=== PATIENT | female | born 1970 | race Caucasian/White ===

== ENCOUNTER 2018-07-28 07:08 | Day surgery (SDC) | payer BC, OTHER ==
[2018-07-22 12:16] LABS: Absolute Lymphocytes (CBC) 2.3 K/uL (0.7-4.9); Absolute Monocytes 0.6 K/uL (0.1-1.3); Basophils % 1.1 % (0-1.3); Eosinophils % 8.2 % (0-4.4); Hematocrit 43.7 % (36.0-45.0); Lymphocytes % 35.1 % (15.3-44.8); MPV 9.3 fL (7.6-11.3); Monocytes % 9.3 % (3.3-12.3)
[2018-07-22 12:32] LABS: Urine Appearance CLEAR; Urine Bilirubin NEGATIVE (NEG); Urine Blood NEGATIVE (NEG); Urine Color YELLOW; Urine Glucose NEGATIVE (NEG); Urine Protein NEGATIVE (NEG); Urine Specific Gravity 1.015 (1.005-1.030); Urine Urobilinogen 0.2 mg/dL (0.2-1.0)
[2018-07-22 12:36] LABS: Urine Microscopic Reflex NO UMIC
[2018-07-28] MEDS ORDERED: VASOPRESSIN 20 UNIT/ML VIAL ONE (07:34)
[2018-07-28] MEDS ORDERED: CEFAZOLIN/SWI 1gm 1 GM/10 ML SYR ONE (07:34)
[2018-07-28] MEDS ORDERED: NA CHLORIDE 0.9% 50 ML ONE (07:34)
[2018-07-28] MEDS ORDERED: SCOPOLAMINE HYDROBROMIDE PATCH TD ONE (07:38)
[2018-07-28] MEDS ORDERED: CEFAZOLIN/SWI 2gm 2 GM/20 ML SYR ONE (07:38)
[2018-07-28] MEDS ORDERED: Ringers Lactate 1,000 ML IV ONE ×2 (07:38→11:04)
[2018-07-28] MEDS ORDERED: ROCURONIUM 50 MG/5 ML VIAL IV ONE (07:50)
[2018-07-28] MEDS ORDERED: PROPOFOL 200 MG/20 ML VIAL IV ONE (07:50)
[2018-07-28] MEDS ORDERED: DEXAMETHASONE 10 MG/ML VIAL ONE (07:50)
[2018-07-28] MEDS ORDERED: FENTANYL CITR 250 MCG/5 ML ONE (07:50)
[2018-07-28] MEDS ORDERED: MIDAZOLAM HCL 2 MG/2 ML INJ ONE (07:50)
[2018-07-28] MEDS ORDERED: LIDOCAINE 2% MPF 5 ML VIAL ONE (07:50)
[2018-07-28] MEDS ORDERED: ONDANSETRON 4 MG/2 ML VIAL ONE (07:51)
[2018-07-28] MEDS ORDERED: NA CHLORIDE 0.9% 1,000 ML ONE (08:52)
[2018-07-28] MEDS ORDERED: FENTANYL CITR 100 MCG/2 ML ONE (11:35)
[2018-07-28] MEDS: HYDROMORPHONE HCL 1 MG/ML INJ ONE ×4 (12:43→14:10)
[2018-07-28] MEDS ORDERED: PROMETHAZINE 25 MG/ML VIAL IV PRN (12:54)
[2018-07-28] MEDS ORDERED: PROMETHAZINE 25 MG TABLET PO PRN (12:55)
[2018-07-28] MEDS ORDERED: MEPERIDINE HCL 50 MG/ML AMP IM PRN (12:57)
[2018-07-28] MEDS ORDERED: Ringers Lactate 1,000 ML IV SCH ×2 (13:00→18:00)
[2018-07-28 14:07] VITALS: O2SAT 100
[2018-07-28] MEDS: IBUPROFEN 200 MG TAB PO PRN ×2 (14:50→22:40)
[2018-07-28 16:05] VITALS: BMI 30.3
[2018-07-28] MEDS: HYDROCODONE/APAP 5/325 MG TAB PO PRN (17:53)
[2018-07-28] MEDS: Ringers Lactate 1,000 ML IV SCH (17:56)
[2018-07-29] MEDS: Ringers Lactate 1,000 ML IV SCH ×2 (01:32→08:38)
[2018-07-29] MEDS: HYDROCODONE/APAP 5/325 MG TAB PO PRN ×2 (04:00→10:42)
[2018-07-29 06:39] LABS: Absolute Lymphocytes (CBC) 1.9 K/uL (0.7-4.9); Absolute Monocytes 1.1 K/uL (0.1-1.3); Absolute Neutrophil 10.4 K/uL (1.8-8.0); Basophils % 0.1 % (0-1.3); Eosinophils % 0.1 % (0-4.4); Hematocrit 34.7 % (36.0-45.0); Lymphocytes % 13.8 % (15.3-44.8); MPV 9.3 fL (7.6-11.3); Monocytes % 8.3 % (3.3-12.3); RBC Red Blood Cell Count 3.78 M/uL (3.86-4.86)
[2018-07-29] MEDS: IBUPROFEN 200 MG TAB PO PRN (08:33)
[2018-07-29 09:49] VITALS: BP 123/66; TEMP 97.3
== END 2018-07-29 11:15 | disposition home or self-care (01) ==
LOC: OR 07:08 → 2ND-WC 12:21 → OR 07-29 11:15
PROVIDERS: ATTEND Obstetrics & Gynecology
PROC: 0UT94ZZ Resection of Uterus, Percutaneous Endoscopic Approach (ICD-10-PCS; 2018-07-28)
PROC: 0USG7ZZ Reposition Vagina, Via Natural or Artificial Opening (ICD-10-PCS; 2018-07-28)
PROC: 0JQC0ZZ Repair Pelvic Region Subcutaneous Tissue and Fascia, Open Approach (ICD-10-PCS; 2018-07-28)
PROC: 0WQNXZZ Repair Female Perineum, External Approach (ICD-10-PCS; 2018-07-28)
PROC: 0TSD0ZZ Reposition Urethra, Open Approach (ICD-10-PCS; principal; 2018-07-28 08:30)
DX: N81.2 Incomplete uterovaginal prolapse (principal); D25.9 Leiomyoma of uterus, unspecified; N39.3 Stress incontinence (female) (male); N81.6 Rectocele; N81.81 Perineocele; N80.0 Endometriosis of uterus; N88.8 Other specified noninflammatory disorders of cervix uteri; J45.909 Unspecified asthma, uncomplicated; F98.8 Other specified behavioral and emotional disorders with onset usually occurring in childhood and adolescence; F32.9 Major depressive disorder, single episode, unspecified; Z80.0 Family history of malignant neoplasm of digestive organs
CPT/HCPCS: 36415; 81003; 81025; 85025; 86850; 86900; 86901; 88307; J0690; J1100; J1170; J2175; J2250; J2405; J2704; J3010; J7030

== ENCOUNTER 2023-04-07 07:29 | Day surgery (SDC) | payer BC, OTHER ==
[2023-04-05 15:45] LABS: Absolute Lymphocytes (CBC) 2.3 K/uL (0.7-4.9); Hematocrit 39.1 % (36.0-45.0); Lymphocytes % 27.9 % (15.3-44.8); MCV 88.8 fL (80-100); MPV 7.6 fL (7.6-11.3); Platelets 312 thou/uL (152-406)
[2023-04-05 16:02] LABS: Potassium 4.2 mEq/L (3.5-5.1)
--- NOTE | 2023-04-05 22:49 | RAD REPORT ---
EXAM DESCRIPTION: RAD - Chest Pa And Lat (2 Views) - 04/05/2023 4:02 pm CLINICAL HISTORY: Pre op pending thigh mass removal. Hypertension COMPARISON: ABDOMEN ACUTE SERIES dated 07/11/2009; Shoulder Right 2 View dated 03/09/2023; IMP 3D DIAG UNI F/U dated 09/16/2020; IMP 3D SCR GARRET BILAT W/CAD dated 08/20/2020 TECHNIQUE: PA and lateral views of the chest were obtained. FINDINGS: The lungs are clear. Heart size is normal and central vasculature is within normal limits. No pleural effusion or pneumothorax seen. No acute bony finding noted. IMPRESSION: No acute cardiopulmonary process.
--- NOTE | 2023-04-06 12:56 | EKG ---
Test Date: 2023-04-05 Test Time: 16:25:37 [employer]ning Operator: PAULETTE MEASUREMENT RESULTS: Intervals: Rate: 73 OK: 140 QRSD: 86 QT: 386 QTc: 425 [place]: P: 50 OK: 140 QRS: 15 T: 11 INTERPRETIVE STATEMENTS: Normal sinus rhythm Low voltage QRS Borderline ECG No previous ECG available for comparison Electronically Signed On 04-06-23 12:52:50 [employer] ATTORNEY by Iker Delaney
[2023-04-07] MEDS: Ringers Lactate 1,000 ML IV ONE (07:58)
[2023-04-07] MEDS ORDERED: CEFAZOLIN SODIUM 1 GM/VIAL ONE (08:00)
[2023-04-07] MEDS ORDERED: ONDANSETRON 4 MG/2 ML VIAL ONE (08:52)
[2023-04-07] MEDS ORDERED: LIDOCAINE 1% MPF 5 ML VIAL ONE (08:52)
[2023-04-07] MEDS ORDERED: KETOROLAC 30 MG/ML INJ ONE (08:52)
[2023-04-07] MEDS ORDERED: propofoL 200 MG/20 ML VIAL IV ONE (08:52)
[2023-04-07] MEDS ORDERED: MIDAZOLAM HCL 2 MG/2 ML INJ ONE (08:52)
[2023-04-07] MEDS ORDERED: FENTANYL CITR 100 MCG/2 ML ONE (08:52)
--- NOTE | 2023-04-07 10:18 | P.BOP ---
Preoperative diagnosis: left anterior thigh intramuscular tender mass Postoperative diagnosis: same Primary procedure: Excisional biopsy left anterior thigh intramuscular tender mass 10x8cm Estimated blood loss: <20cc Specimen: mass Findings: intramuscular mass Anesthesia: General Complications: None Drain(s): Nasogastric Transferred to: Recovery Room Condition: Good
[2023-04-07] MEDS: MORPHINE 4 MG/ML SYR ONE (10:30)
[2023-04-07] MEDS: CODEINE 30MG/APAP 300MG TAB ONE (11:20)
[2023-04-07 12:04] VITALS: BP 126/80; TEMP 97.2; O2SAT 100
== END 2023-04-07 11:45 | disposition home or self-care (01) ==
LOC: OR 07:29
PROVIDERS: ATTEND Surgery
PROC: 0JBM0ZZ Excision of Left Upper Leg Subcutaneous Tissue and Fascia, Open Approach (ICD-10-PCS; principal; 2023-04-07 09:00)
DX: D17.9 Benign lipomatous neoplasm, unspecified (principal)
CPT/HCPCS: 93005; 85025; 80048; 36415; 88304; 71046; 27339; J2704; J2001; J2250; J3010; J2405; J7120; J0690